=== PATIENT | male | born 1945 ===

== ENCOUNTER 2024-11-23 17:37 | Emergency (ER) | payer MEDICARE, OTHER, SELFPAY ==
[2024-11-23 17:43] VITALS: BP 116/69; PULSE 72; RESP 20; TEMP 36.4; O2SAT 96
[2024-11-23 17:48] VITALS: BP 116/69; PULSE 72; RESP 20; TEMP 36.4; O2SAT 96
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
[2024-11-23 18:41] LABS: Lactate 2.5 mmol/L (<or=2.0)
[2024-11-23 18:44] LABS: Abs Immature Grans 0.06 10^3/uL (0.0-0.06); Absolute Basophil Count 0.03 10^3/uL (0.0-0.2); Absolute Lymphocyte Count 1.33 10^3/uL (1.2-3.4); Absolute Monocyte Count 0.72 10^3/uL (0.1-0.8); Absolute Neutrophil Count 5.27 10^3/uL (1.2-6.7); Basophils % 0.4 %; Eosinophils % 1.3 %; HCT 53.5 % (40.0-50.0); HGB 17.9 g/dL (13.5-17.5); Immature Grans % 0.8 %; Lymphocytes % 17.7 %; MCHC 33.5 % (32.0-36.0); MCV 90 fL (80-95); MPV 10.9 fL (8.0-11.0); Monocytes % 9.6 %; Neutrophils % 70.2 %; Platelet Count 236 10^3/uL (130-400); RBC 5.97 10^6/uL (4.36-5.78); RDW 13.6 % (11.8-14.1); RDW-SD 45.3 fL; WBC 7.51 10^3/uL (4.4-10.8)
--- NOTE | 2024-11-23 18:50 | DI.RAD_ITS ---
Exam(s) XR HAND RT COMPLETE EXAM: XR HAND RT COMPLETE CLINICAL HISTORY: Injury 1 week ago. TECHNIQUE: 2D digital imaging was performed. COMPARISON: No exams were available for comparison FINDINGS: 3 views There is no evidence of acute fracture. On the lateral view on the dorsal aspect of the hand there i s a skin indentation which may be a laceration. There is no radiopaque foreign body at this level no r significant gas in the soft tissues and the subjacent metacarpals appear intact. There are chronic deformity changes at level the wrist, specifically in the proximal carpal row and r adiocarpal joint where there is advanced narrowing of the joint space between the scaphoid and the di stal radius articular surface [id number] and indeed there is indentation of the distal radius artic ular surface by the proximal half of the scaphoid. This has chronic-type appearance. Scapholunate d istance is slightly increased and the articular space between the lunate and the distal radius is rel atively preserved. There is calcification in the triangular fibrocartilage on the medial aspect of t he wrist. In the midcarpal level there are degenerative subarticular cysts in the proximal lateral a spect of the trapezium. This is at the level the triscaphe joint. The actual 1st carpometacarpal all int appears preserved. 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 Soft tissue avulsion on the dorsal aspect of the hand no subjacent metacarpal fractures. DATA REPOSITORY: RADIATION DOSE DELIVERED:
[2024-11-23 18:55] LABS: ALT 54 U/L (16-63); AST 35 U/L (15-37); Albumin 4.1 g/dL (3.4-5.0); Alkaline Phosphatase 94 U/L (46-116); Anion Gap 11.1 mmol/L (3-11); BUN 19 mg/dL (7-18); Bilirubin, Total 0.7 mg/dL (0.2-1.0); CO2 27.9 mmol/L (21.0-32.0); CREATININE 1.3 mg/dL (0.70-1.30); Calcium 9.3 mg/dL (8.5-10.1); Chloride 104 mmol/L (98-107); Estimated GFR 56.23 (mL/min/1.73m2); Glucose 114 mg/dL (74-106); Potassium 3.9 mmol/L (3.5-5.1); Sodium 143 mmol/L (136-145); Total Protein 8.3 g/dL (6.4-8.2)
[2024-11-23] MEDS: Normal Saline 500 ML IV (18:58)
[2024-11-23] MEDS: CLINDAMYCIN 600 MG/50 ML BAG 100 MG IVPB (18:59)
[2024-11-23 19:02] VITALS: RESP 16
[2024-11-23] MEDS: Clindamycin 150 MG CAP, 12 CAPS/BTL 450 MG PO (19:59)
[2024-11-23 20:00] VITALS: BP 124/81; PULSE 61; RESP 16; O2SAT 97
== END 2024-11-23 20:00 | disposition home or self-care (01) ==
LOC: ER 20:51
PROVIDERS: Emergency Provider Registered Nurse Emergency
DX: L03.113 Cellulitis of right upper limb (principal); W23.1XXA Caught, crushed, jammed, or pinched between stationary objects, initial encounter
CPT/HCPCS: 36415; 80053; 87040; 96365; 99284; 73130; 83605; 85025; 99283; J0737

== ENCOUNTER 2025-05-29 13:41 | Outpatient (CLI) | payer MEDICARE, OTHER, SELFPAY ==
--- NOTE | 2025-05-29 13:30 | DI.RAD_ITS ---
Exam(s) XR KNEE LT 4V AP,LAT,LINDSAY,PAT EXAM: XR KNEE LT 4V AP,LAT,LINDSAY,PAT CLINICAL HISTORY: left knee pain. TECHNIQUE: 2D digital imaging was performed. 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 There is no evidence fracture nor prominent joint effusion in the knee. There is advanced narrowing of the medial compartment and marginal osteophytes off the medial compartment. There is chondrocalcinosis in both medial lateral compartments. Lateral compartment exhibits normal height. There are mild- moderate degenerative changes in the patellofemoral compartment. No patellar displacement. 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 Some degenerative change also noted in the medial aspect of the patellofemoral compartment. Chondrocalcinosis noted. DATA REPOSITORY: RADIATION DOSE DELIVERED:
== END 2025-05-29 13:42 | disposition home or self-care (01) ==
LOC: DIORS 13:42
PROVIDERS: Visit Provider Physician Assistant
DX: M17.12 Unilateral primary osteoarthritis, left knee (principal); M25.562 Pain in left knee; M11.262 Other chondrocalcinosis, left knee
CPT/HCPCS: 99213; 20610; J1010; 73564